=== PATIENT | female | born 1975 | race Two or more races ===

== ENCOUNTER 2025-04-24 10:40 | Emergency (ER) | payer OTHER, SELFPAY ==
[2025-04-24 11:09] VITALS: BP 139/83; PULSE 77; RESP 16; TEMP 36.2; O2SAT 100; BMI 28.4
--- NOTE | 2025-04-24 11:15 | ED_ITS ---
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 Patient reports that the cyst began to grow 3 days ago, and she came in today due to increased redness and pain in that area. She states no known cause, denies trauma or insect bite to the area. Patient denies change in swallowing abilities, and denies increased pain with neck movement. She endorses feeling feverish over the last few days as well, with no known recorded temperature. Patient report no additional complaints. Patient states that she is from [place] and is only visiting the area. MD complaint: abscess/boil Onset (ago): day(s) (3) Location: neck (left side) Pain Consistency: constant Relieving factors: none Exacerbating factors: palpation Context: none Associated symptoms: fever Treatments prior to arrival: none Related Data Previous Rx's ?Medication ?Instructions ?Recorded cephalexin 500 mg capsule 500 mg PO Q6H 7 days #28 caps 04/24/25 doxycycline hyclate 100 mg tablet 100 mg PO BID 7 days #14 tabs 04/24/25 Allergies Allergy/AdvReac Type Severity Reaction Status Date / Time No Known Allergies Allergy Verified 04/24/25 11:15 Review of Systems 2 Constitutional: Constitutional: Reports no additional constitutional complaints, Denies chills, Reports fever(s) and Denies night sweats Eyes: Eyes: Reports no additional eye complaints, Denies blurry vision, Denies change in vision, Denies diplopia, Denies eye discharge, Denies loss of vision and Denies eye pain ENT: Denies dizziness and Reports neck mass (left side- painful) Cardiovascular: Cardiovascular: Reports no additional cardiovascular complaints, Denies chest pain, Denies lightheadedness, Denies Loss of Consciousness and Denies dyspnea Respiratory: Respiratory: Reports no additional respiratory complaints and Denies dyspnea Gastrointestinal: Gastrointestinal: Reports no additional gastrointestinal complaints, Denies abdominal pain, Denies melena, Denies hematochezia, Denies change in bowel habits and Denies change in stool character Genitourinary: Genitourinary: Denies hematuria, Denies urinary frequency, Denies dysuria, Denies urinary incontinence, Denies urinary hesitancy and Denies urinary urgency Musculoskeletal: Musculoskeletal: Reports no additional musculoskeletal complaints, Denies numbness and Denies tingling Neurologic: Denies dizziness, Denies loss of vision, Denies numbness and Denies tingling Psychiatric: Psychiatric: Reports no additional psychiatric complaints Endocrine: Endocrine: Reports no additional endocrine complaints Hematologic/Lymphatic: Hematologic/Lymphatic: Reports no additional hematologic/lymphatic complaints Allergic/Immunologic: Allergic/Immunologic: Reports no additional allergic/immunologic complaints PMFSH Past Medical History Attestation statement: The following information was validated with the patient. Source: old records reviewed and nursing notes reviewed Social History Social History Advance Directives: No Advance Directives Information Provided: Yes Do you have a plan to hurt others: No Plan Physical Exam 2 Vital Signs: Vital Signs: Last Vital Signs Temp 98.0 F 04/24/25 13:28 Pulse 72 04/24/25 13:28 Resp 16 04/24/25 13:28 BP 128/88 04/24/25 13:28 Pulse Ox 100 04/24/25 13:28 O2 Del Method Room Air 04/24/25 13:28 BMI result Body Mass Index 28.4 Const: General: cooperative, no acute distress, alert and awake Nutritional Appearance: well nourished Orientation/consciousness: patient oriented x3 HEENT: Head: Yes normal to inspection and Yes atraumatic Ears: hearing grossly normal bilaterally and external ears normal General nose exam: Normal external nose present, no nasal discharge noted and no epistaxis Face and sinus: Yes normal facial exam, No abrasion and No laceration Mouth: Normal oral and palatal mucosa present, no drooling and no muffled voice Eyes: General: appearance normal, both eyes and all related structures P eriorbital: periorbital findings normal Eyelids: Yes eyelids normal C onjunctivae: conjunctivae normal Pupils: Equal, round and reactive pupils present EOM: EOMs intact bilaterally Neck: Neck: Yes full ROM and Yes no lymphadenopathy Neck images: 1. erythematous with fluctuance, see image above. Resp: Effort & Inspection: normal respiratory effort and able to speak in complete sentences Neuro: General: patient oriented x3, moves all extremities and CN's II-XI intact bilaterally Cranial nerves: Yes Equal, round and reactive pupils present Cognition (Neuro): normal cognition Extrem: General: Yes normal to inspection, Yes full ROM and Yes capillary refill normal Psych: Appearance: grossly normal Mental Status: mental status grossly normal Affect: normal affect Attitude: cooperative Thought process: N ormal thought process present Thought content: Normal thought content present Insight: Good insight present (Psych) Course Course Course Narrative: 49 yo female with PMH of pre-diabetes, HTN, here with c/o 3 days of boil to L neck that started as as small pimple. She has felt she has had fevers, no diff swallowing. Will apply LET order lidocaine and she needs aspiration. this is a RAPID medical screening exam the rest of the history and physical exam is to be done by the main provider. LEDA 04/24/25 [id number] Medications Administered Discontinued Medications Generic Name Dose Route Start Last Admin Trade Name Freq PRN Reason Stop Dose Admin Lidocaine HCl 5 ml 04/24/25 11:27 04/24/25 11:40 Lidocaine Hcl 1 % Mpf 5 Ml Vial SUBCUT 04/24/25 11:28 5 ml ONCE ONE Administration Lidocaine/Epinephrine/Tetracaine 3 ml 04/24/25 11:15 04/24/25 11:35 Lidocaine/Racepinep/Tetracaine 3 Ml Gel.Pf.Librado TOPICAL 04/24/25 11:16 3 ml ONCE ONE Administration Medical Decision Making Medical Decision Making [facility] Narrative: Patient is a 49 year old assigned female at with a history of HTN and pre- diabetes presenting to the emergency department today with a left lower neck abscess. Patient's physical exam was as noted in the physical exam portion of this note. I explained my physical exam findings to the patient. I answered all questions asked by the patient. Patient's abscess was aspirated / drained with an 18g needle, without incident. I&D went without incident. I stressed the importance of the patient taking her medication as directed (either prescribed or as the over the counter packaging recommends). I stressed the importance of the patient following up with her primary care provider. I stressed the importance of the patient returning to the emergency department immediately if her symptoms were to worsen or if she were to develop any dizziness, shortness of breath, difficulty breathing, chest pain, blurry vision, loss of vision, nausea, vomiting, abdominal pain, fever, chills, back pain, or any other complaints. Patient verbalized agreement and understanding with this treatment plan and discharge. Differential Diagnosis Differential Diagnoses: The differential diagnosis associated with the presentation includes Neck abscess Admission/Observation Consideration of admission/observation: Escalation of care including admission/observation considered Patient would have been admitted to the hospital had her work up had any findings where hospital admission was appropriate and her clinical presentation warranted hospital admission. Prescription Management I considered prescription management with: Antibiotic (patient prescribed an antibiotic given her abscess and pre-diabetic status) Procedures Abscess I/D Side (if applicable): left Local Anesthetic: other anesthetic (topical lidocaine) Technique: needle aspiration Amount of fluid expressed (mL): 3 Sent for culture/gram staining?: No Irrigation: No Packing used?: none Discharge Plan Discharge Clinical Impression: Abscess Patient Disposition: Home, Self-Care Instructions: Abscess (ED), Abscess Incision and Drainage (DC) Additional Instructions: We were able to aspirate (drain with needle) approximately 2 milliliters of pus from your left neck abscess. However, this will need to be followed up on by a general surgeon to ensure the entire abscess is removed / aspirated / drained. Take your antibiotic as prescribed. Follow up with your primary care provider. Return to the emergency department immediately if your symptoms worsen or if you develop any dizziness, shortness of breath, difficulty breathing, chest pain, blurry vision, loss of vision, nausea, vomiting, abdominal pain, fever, chills, back pain, or any other complaints. Logramos aspirar (drenar con aguja) aproximadamente 2 mililitros de pus de polanco absceso en el sandhya ulises. Sin embargo, ser? necesario que un cirujano general realice un seguimiento para asegurar la extirpaci?n, aspiraci?n y drenaje completo del absceso. [place] el antibi?francisco seg?n lo prescrito.Teofilo?seguimiento?con polanco m?dico de atenci?n primaria. Acuda inmediatamente al servicio de urgencias si alberto s?ntomas empeoran o si presenta falta de aliento, dificultad para respirar, dolor tor?cico, mareos, aturdimiento, dolor de espalda, dolor abdominal, fiebre, escalofr?os o cualquier otro s?ntoma. Please see the information below about our Patient Portal. If you are not yet enrolled in the [facility] Patient Portal, you will receive an enrollment email invitation following your visit to any [facility] care setting. You may also self-enroll in the Patient Portal by visiting our website: [email or web address] The following information is required to access the Patient Portal: - Your [facility] Medical Record Number - Your personal home email address (must match what is in your electronic medical record, Registration staff can assist with this) - Name - Date of Capabilities of the Patient Portal: - Message some providers - View upcoming appointments - Access your health summary, medical history, and visit history - View current conditions and allergies - View procedure and lab results - View your medications, including guidelines, side effects, and precautions - Complete pre-appointment questionnaires requested by your provider - Ready summary reports of your office visits and procedures To access the Patient Portal Mobile [employer]ibr[employer], follow these directions: - Search [employer] in the [employer] Store or [employer] Store - Download the Librado - Search for [facility] - Enter your login/password Portal del paciente Si usted no esta inscrito en el portal de pacientes de [facility], recibira raz invitacion de inscripcion despues de polanco visita al [facility] o al [facility] via correo electronico. Tambien puede inscribirse voluntariamente en el portal de pacientes visitando nuestra pagina web: [email or web address] La siguiente informacion sera requerida para acceder al portal: - Polanco elenita de historia medica de [facility] - Polanco direccion de correo electronico personal - Nombre - Fecha de nacimiento Capacidades: Las siguientes capacidades estan disponibles en el portal de pacientes: - Enviar mensajes a algunos doctores - Verificar proximas citas - Acceso a polanco historial de jolly, registro medico e historial de visitas - Odalys las condiciones actuales y alergias odalys procedimientos y resultados del laboratorio - Odalys alberto medicamentos, incluyendo las pautas - Efectos secundarios y precauciones - Completar o llenar formularios / cuestionarios de - Citas solicitadas por polanco doctor - Leer los resumenes de reportes medicos de alberto visitas y procedimientos Darlene acceder a la aplicacion movil: - [employer] en la [employer] Store o [employer] - Descargue la aplicacion - [facility] - Ingrese polanco nombre de usuario / Contrasena Prescriptions: New cephalexin 500 mg capsule 500 mg PO Q6H 7 Days Qty: 28 0RF doxycycline hyclate 100 mg tablet 100 mg PO BID 7 Days Qty: 14 0RF Referrals: [facility] General Surgeons [Provider Group] (Call to establish and follow up with a general surgeon. Llamar para establecer y seguimiento con un cirujano general. ) [facility] Family Medicine [Provider Group] (Call to establish and follow up with a primary care provider. If you already have a primary care provider, please follow up with them. Llame para establecer contacto con un m?dico de cabecera y darle seguimiento. Si ya tiene un m?dico de cabecera, por favor, contacte con ?l.) [facility] Jessica Mcintosh [Provider Group] (Call to establish and follow up with a primary care provider. If you already have a primary care provider, please follow up with them. Llame para establecer contacto con un m?dico de cabecera y darle seguimiento. Si ya tiene un m?dico de cabecera, por favor, contacte con ?l.) [facility] Primary Care, [place] [Provider Group] (Call to establish and follow up with a primary care provider. If you already have a primary care provider, please follow up with them. Llame para establecer contacto con un m?dico de cabecera y darle seguimiento. Si ya tiene un m?dico de cabecera, por favor, contacte con ?l.) [facility] Primary Care, [facility] [Provider Group] (Call to establish and follow up with a primary care provider. If you already have a primary care provider, please follow up with them. Llame para establecer contacto con un m?dico de cabecera y darle seguimiento. Si ya tiene un m?dico de cabecera, por favor, contacte con ?l.) [facility] Primary Care, [place]o [place] [Provider Group] (Call to establish and follow up with a primary care provider. If you already have a primary care provider, please follow up with them. Llame para establecer contacto con un m?dico de cabecera y darle seguimiento. Si ya tiene un m?dico de cabecera, por favor, contacte con ?l.) Interventions: ED Discharge Assessment Last Done: 04/24/25 13:28 Discharge Date/Time: 04/24/25 13:29 Print Language: Malagasy
[2025-04-24] MEDS: Lidocaine/Racepinep/Tetracaine 3 ML GEL.PF.APP TOPICAL (11:35)
[2025-04-24] MEDS: Lidocaine HCl 1 % MPF 5 ML VIAL SUBCUT (11:40)
--- NOTE | 2025-04-24 11:45 | PC.NURSE ---
provider given lido to administer
--- OUTSIDE RECORDS SUMMARY | 2025-04-24 12:41 | XMS_ITS | Referral Summary ---
Author Organization [facility] Address [address] [place] [address] Care Team Providers Care Surgical Specialist Name Role Phone Perez Peñaloza MD Primary Care Provider [phone] Encounters Date Type Department Care Team Description 03/22/2025 1:30 PM CDT Office Visit [facility] [address] [place] [phone] Shade Mercedes DC Lumbosacral spondylosis without myelopathy (Primary Dx); Segmental and somatic dysfunction of lumbar region; Segmental and somatic dysfunction of pelvic region; Segmental and somatic dysfunction of sacral region 03/08/2025 1:30 PM CDT Office Visit [facility] [address] [place] [phone] Shade Mercedes DC Lumbosacral spondylosis without myelopathy (Primary Dx); Segmental and somatic dysfunction of lumbar region; Segmental and somatic dysfunction of pelvic region; Segmental and somatic dysfunction of sacral region 03/01/2025 9:07 AM CDT - 03/01/2025 11:59 PM CDT Hospital Encounter [facility] [address] [place] [phone] Jag Hernández MD Discharge Disposition: Home or Self Care 03/01/2025 8:19 AM CDT - 03/01/2025 9:06 AM CDT Hospital Encounter [facility] [address] [place] [address] Jag Hernández MD Discharge Disposition: Home or Self Care 02/28/2025 Orders Only [facility] [address] [place] [address] Jag Hernández MD Generalized pain (Primary Dx) 02/24/2025 Refill [facility] , [address] [place] [address] Idalia Alvarado APNP Refill Request 02/22/2025 1:30 PM CDT Office Visit [facility] [address] [place] [phone] Shade Mercedes, DC Lumbosacral spondylosis without myelopathy (Primary Dx); Segmental and somatic dysfunction of lumbar region; Segmental and somatic dysfunction of pelvic region; Segmental and somatic dysfunction of sacral region 01/28/2025 Prep for Case [facility] [address] [place] [address] Jag Hernández MD Lumbar radiculopathy (Primary Dx) from Last 3 Months Allergies Active Allergy Reactions Criticality Noted Date Comments Lisinopril Cough 07/27/2024 Medications medroxyPROGESTERo ne (Provera) 10 MG tablet Take 1 tablet by mouth daily. 20 tablet 0 3:22 PM [employer]PLOYEE TRAINING [employer]IST 09/29/20 20 Active sitaGLIPtin (Januvia) 100 MG tablet Take 1 tablet by mouth daily. 30 tablet 3 1 2:54 PM CDT 02/18/20 21 Active Menthol-Methyl Salicylate (Thera-Gesic) 1-15 % Cream Apply to the affected area 4 times a day 85 g 1 08/10/20 21 Active buPROPion XL (WELLBUTRIN XL) 150 MG 24 hr tablet Take 1 tablet by mouth daily. 30 tablet 3 1 2:06 PM EMPLOYEE TRAINING SPECIALIST 11/02/20 21 Active promethazine-phen ylephrine-codeine (PROMETHAZINE VC/CODEINE) 6.25-5-10 MG/5ML solution Take 5 mLs by mouth every 6 hours as needed (cough). 280 mL 2 2:09 PM EMPLOYEE TRAINING SPECIALIST 12/03/19 22 Active lidocaine (LIDODERM) 5 % patch Place 1 patch onto the skin daily. Remove & Discard patch within 12 hours or as directed by MD 30 patch 1 2 1:35 PM CDT 01/15/20 22 Active guaifenesin (ROBITUSSIN) 100 MG/5ML liquid Take 10 mLs by mouth 3 times daily as needed for cough up to 10 days. 120 mL 2 1:35 PM CDT 03/05/20 22 Active benzonatate (TESSALON PERLES) 100 MG capsule Take 1 capsule by mouth every 8 hours. 20 capsule 2 3:29 PM CDT 05/23/20 22 Active cetirizine (ZyrTEC) 10 MG tablet Take 1 tablet by mouth daily. 10 tablet 2 3:29 PM CDT 05/23/20 22 Active fluticasone-salme terol 250-50 MCG/ACT inhaler Inhale 1 puff into the lungs every 12 hours. 60 each 2 2:35 PM CDT 06/09/20 22 Active albuterol 108 (90 Base) MCG/ACT inhaler Inhale 2 puffs into the lungs every 6 hours as needed for wheezing or shortness of breath for up to 28 days. 18 g 1 2 2:35 PM CDT 06/09/20 22 Active doxycycline monohydrate (ADOXA) 100 MG tablet Take 1 tablet by mouth 2 times daily. 10 tablet 2 12:22 PM CDT 07/08/20 22 Active nortriptyline (PAMELOR) 25 MG capsule Take 1 capsule by mouth nightly. 28 capsule 2 11:09 AM CDT 08/20/20 22 Active losartan (COZAAR) 25 MG tablet Take 1 tablet by mouth daily. 90 tablet 3 3 10:24 AM CDT 02/24/20 23 Active ibuprofen (MOTRIN) 600 MG tablet Take 1 tablet by mouth every 6 hours as needed for pain 30 tablet 1 3 6:25 PM CDT 04/04/20 23 Active omeprazole (PrilOSEC) 20 MG capsule Take 1 capsule by mouth nightly. 28 capsule 3 3 10:24 AM CDT 09/26/20 23 Active PEG 2271-MRh-WsAxy-Na Cl-NaSulf (PEG-3350 and electrolytes) 236 g powder for oral solution Take 4,000 mLs by mouth once for 1 dose. Any PEG 3350, ANY flavor; ok to substitute with any flavor, alternative or generic 4000 mL 3 11:02 AM EMPLOYEE TRAINING SPECIALIST 11/11/20 23 Active estradiol (ESTRACE) 1 MG tablet Take 1 tablet by mouth daily. 30 tablet 11 3 11:02 AM EMPLOYEE TRAINING SPECIALIST 11/11/20 23 Active Acetaminophen Extra Strength 500 MG Tab Take 1 tablet by mouth every 6 hours as needed. 30 tablet 1 4 7:48 PM EMPLOYEE TRAINING SPECIALIST 01/20/20 24 Active omeprazole (PrilOSEC) 20 MG capsule Take 1 capsule by mouth nightly. 90 capsule 5 1:12 PM EMPLOYEE TRAINING SPECIALIST 07/05/20 24 Active acetaminophen (TYLENOL) 500 MG tablet Take 1 tablet by mouth every 6 hours as needed. 100 tablet 5 1:12 PM EMPLOYEE TRAINING SPECIALIST 12/20/19 25 Active losartan (COZAAR) 25 MG tablet Take 1 tablet (25 mg total) by mouth daily. 90 tablet 3 5 1:12 PM EMPLOYEE TRAINING SPECIALIST 12/20/19 25 Active omeprazole (PrilOSEC) 20 MG capsule Take 1 capsule by mouth nightly as needed. 90 capsule 5 1:12 PM EMPLOYEE TRAINING SPECIALIST 12/20/19 25 Active venlafaxine (EFFEXOR) 25 MG tablet Take 1 tablet by mouth 2 times daily. 60 tablet 2 5 8:16 AM CDT 12/20/19 25 Active pregabalin (LYRICA) 25 MG capsuleIndication s:Lumbar radiculopathy Take 1 capsule by mouth 3 times daily. 90 capsule 3 5 8:16 AM CDT 02/27/20 25 025 Active sulindac (CLINORIL) 200 MG tablet Take 1 tablet by mouth 2 times daily with food 60 tablet 1 2 2:57 PM EMPLOYEE TRAINING SPECIALIST 08/10/20 21 023 Discontin ued(Alter lesley Therapy) meloxicam (MOBIC) 15 MG tablet Take 1 tablet by mouth daily as needed for Pain. 30 tablet 11 2 3:22 PM CDT 03/22/20 22 023 Discontin ued(Alter lesley Therapy) lisinopril (ZESTRIL) 10 MG tablet Take 1 tablet by mouth daily. 90 tablet 3 2 3:27 PM EMPLOYEE TRAINING SPECIALIST 08/11/20 22 022 Discontin ued(Medic ation Cancelled ) cyclobenzaprine (FLEXERIL) 5 MG tablet Take 1 tablet by mouth nightly for 7 days. 7 tablet 2 11:09 AM CDT 08/20/20 22 022 Discontin ued(Medic ation Cancelled ) Active Problems Problem Noted Date Diagnosed Date Pain-Interventional Pain Management 06/01/2022 Overview (03/01/2025): Procedure Relief Sheet: Raysa Schmidt Requires Kinyarwanda interpretor [facility] Community Ref: Marly Madsen MD Date Procedure/Office visit % Relief Amt Steroid NOTES Provider/ Initial 06/01/22 NPE SB 07/20/22 TF-YARELIS (R) L4-5 K40 sa/bs 01/11/23 FJNB #1 (R) L4-5 L5-S1 100% sa/bs 02/25/23 FJNB #2 (R) L4-5 L5-S1 100% sa/bs 07/27/24 Trident RFA (R) L4-5, L5-6 0% K40 Sa/ag 10/23/24 IL-YARELIS L5-S1 70% K80 Sa/me 03/01/25 IL-YARELIS L5-S1 K80 Sa/me Abnormal uterine bleeding 09/29/2020 Pre-diabetes 09/29/2020 Immunizations Immunization Administration Dates Next Due COVID Moderna 0.5 mL 12Y+ 04/07/2021,03/09/2021 Influenza, split virus, quadrivalent, PF 020 Social History Tobacco Use Types Packs/Day Years Used Date Smoking Tobacco: Every Day Cigarettes 0.3 7 Smokeless Tobacco: Never Tobacco Cessation:Ready to Q uit: Not Asked; Counseling Given: Not Answered Alcohol Use Standard Drinks/Week Comments Yes 5 (1 standard drink = 0.6 oz pur e alcohol) PHQ-2 Answer Date Recorded PHQ-2 Score 0 09/08/2020 Interpersonal Safety Answer Date Record ed RETIRE In the past year, hav e you ever been physically hurt, threatened, controlled or made to feel afraid by someone close to you? No 07/23/2021 RETIRE Currently, are you in a relationship where you are being physically hurt, threatened, controlled or made to feel afraid? 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 Not on file Not on file Not on file Last Filed Vital Signs Vital Sign Reading Time Taken Comments Blood Pressure 120/76 03/01/2025 10:11 AM CDT Pulse 78 03/01/2025 10:11 AM CDT Temperature 35.8 ??C (96.4 ??F) 03/01/2025 8:38 AM CD T Respiratory Rate 16 03/01/2025 10:11 AM CDT Oxygen Saturation 100% 03/01/2025 10:11 AM CDT Inhaled Oxygen Concentration - - Weight 72.6 kg (160 lb) 01/22/2025 12:59 PM EMPLOYEE TRAINING SPECIALIST Height 175.3 cm (5' 9 ) 01/22/2025 12:59 PM EMPLOYEE TRAINING SPECIALIST Body Mass Index 23.63 01/22/2025 12:59 PM EMPLOYEE TRAINING SPECIALIST Plan of Treatment Not on file Procedures Procedure Name Priority Date/Time Associated Diagnosis Comments FL INTRAOPERATIVE C ARM NO REPORT Routine 03/01/2025 10:08 AM CDT Generalized pain MAMMO SCREENING BILATERAL W GILLIAN Routine 09/19/2023 12:58 PM CDT Visit for screening mammogram PAP ORDER Routine 09/08/2020 4:54 PM CDT Well woman exam with routine gynecological exam Papanicolaou smear for cervical cancer screening HPV, HIGH RISK Routine 09/08/2020 4:54 PM CDT Well woman exam with routine gynecological exam Papanicolaou smear for cervical cancer screening from Last 3 Months or Most Recently Relevant to Health Maintenance Results * FL INTRAOPERATIVE C ARM NO REPORT (03/01/2025 10:08 AM CDT) Narrative [id number] - 03/01/2025 10:09 AM CDT Findings from this exam can be found in operative or procedural report section. us Jag Hernández MD IMG FLUOROSCOPY PROCEDURES Екатерина l Result [id number] * MAMMO SCREENING BILATERAL W GILLIAN (09/19/2023 12:58 PM CDT) Anatomical Region Laterality Modality Breast Bilateral Mammography 09/19/2023 2:31 PM CDT Impressions 09/19/2023 2:39 PM CDT No mammographic evidence for malignancy. RECOMMENDATION: Routine mammographic screening according to [employer] recommendations. ?? BI-RADS Category 1: Negative. In compliance with federal regulations, the patient will be sent a lay summary result of this report. Electronically Signed by: Lamonte Hui MD Signed on: 09/19/2023 2:39 PM Created on Workstation ID: [id number] Signed on Workstation ID: [id number] Narrative 09/19/2023 2:39 PM CDT EXAM: MAMMO SCREENING BILATERAL W GILLIAN DATE OF EXAM: 09/19/2023 12:47 PM. COMPARISON EXAMS: 09/15/2020, 09/01/2021 CLINICAL INDICATION: Screening. TECHNIQUE: Bilateral digital screening mammogram with 2D and tomosynthesis. Computer-Aided Detection was utilized. DENSITY: The breasts are heterogeneously dense, which may obscure small masses. FINDINGS: No suspicious asymmetries or groups of microcalcifications. us Perez Peñaloza MD IMG BI PROCEDURES Final Re sult * Pap Test (09/08/2020 4:54 PM CDT) Case Report Gynecological Cytology ?Case: [id number] ? Authorizing Provider: ??TRISHA Cooper ? Collected: ? 09/08/2020 1654 ? Ordering Location: ? [facility] ?Received: ?09/09/2020 0637 ? Center ? First Screen: ?[place], [place] ? Specimen: ?ThinPrep Pap Test, Cervicovaginal ? 09/12/2020 12:18 PM CDT [facility] Interpretation Negative for intraepithelial lesion or malignancy. 09/12/2020 12:18 PM CDT [facility] Specimen Adequacy Satisfactory for evaluation, endocervical/ sformation zone component present. 09/12/2020 12:18 PM CDT [facility] Pap Educational Note The Pap test is a screening test with a well-recognized false negative rate. The best means available to lower the false negative rate and to detect early cervical lesions is a Pap test at regular intervals. All ThinPrep Paps will be reviewed with the aid of the ThinPrep Imaging System, unless otherwise specified. For assistance in current consensus management guidelines, refer to the [employer] Colposcopy and Cervical Pathology website at www.asccp.org 09/12/2020 12:18 PM CDT [facility] [facility] [place] VAGINAL AND CERVICAL CYTOLOGIC MATERIAL / Unknown 09/08/2020 4:54 PM CDT 09/09/2020 6:37 AM CDT [facility] CYTOLOGY ORDERABLES Final Result [address] * HPV, High Risk (09/08/2020 4:54 PM CDT) High Risk HPV Negative Negative [facility] 09/12/2020 12:18 PM CDT [facility] Disclaimer The APTIMA HPV Assay is an in vitro nucleic acid amplification test for the qualitative detection of E6/E7 viral messenger RNA (mRNA) from 14 high-risk types of human papillomavirus (HPV) in cervical specimens. The high-risk HPV types detected by the assay include: 16, 18, 31, 33, 35, 39, 45, 51, 52, 56, 58, 59, 66, and 68. The Aptima HPV Assay does not discriminate between the 14 high-risk types. Cervical specimens in the Thin Prep Pap Test vials containing PreservCyt Solution and collected with broom-type or cytobrush/spatula collection devices are FDA approved for this assay using the PANTHER System. The Aptima High Risk HPV assay is not FDA approved for use as a stand-alone test for primary HPV screening. It is approved for use only in conjunction with cytology. The Aptima High Risk HPV assay is not intended for use as a screening device for women under 30 with normal cervical cytology or replacement of regular cervical cytology screening. The Aptima High Risk HPV assay is not FDA approved for testing on vaginal and/or rectal specimens. [facility] [employer] has internally validated these specimen sources. The expected normal reference range is negative. [facility] 09/12/2020 12:18 PM CDT [facility] [facility] [place] VAGINAL AND CERVICAL CYTOLOGIC MATERIAL / Unknown 09/08/2020 4:54 PM CDT 09/09/2020 6:37 AM CDT [facility] MOLEC DIAGN ORD Екатерина l Result Performing Organization Address City/State/[facility] Co de Phone Number [facility] [address] [place] [address], [facility] from Last 3 Months or Most Recently Relevant to Health Maintenance Insurance [facility] Member Subscriber Plan / Payer (Ef fective 2021-Present) Name:Raysa Mcintyre Relation to Subscriber:Self Name:Raysa Mcintyre Payer ID:[id number] (NAIC) Group ID:Not on file Type:[id number] HMO Address: [facility] [address] [place] [address] * Guarantor: RAYSA AHMADI Account Type Relation to Patient Date of Phone Billing Address Personal/Family Care Teams Surgical Specialist Relationship Specialty Start Date End Date Perez Peñaloza MD [address] [place] [address] PCP - General Internal Medicine 03/25/21
--- NOTE | 2025-04-24 13:27 | PC.NURSE ---
provider aspirated area, placed dressing and discharged pt
[2025-04-24 13:28] VITALS: BP 128/88; PULSE 72; RESP 16; TEMP 36.7; O2SAT 100
== END 2025-04-24 13:29 | disposition home or self-care (01) ==
PROVIDERS: Emergency Provider Emergency Medicine
DX: L02.11 Cutaneous abscess of neck (principal); E11.9 Type 2 diabetes mellitus without complications; I10 Essential (primary) hypertension
CPT/HCPCS: 10160; 99283; 99284; J2003